=== PATIENT | female | born 1995 | race Caucasian/White ===

== ENCOUNTER 2017-03-27 23:25 | Emergency (ER) | payer OTHER ==
[~2017-03-27 23:25] MED LIST: ALBU90OI INH; AZIT250 PO; Crutch1 EACH MISC; HYDHCL25 PO; IBUP600 PO; PRED10 PO; Prednisone20 MG PO; Verotin-Gr Cap1 EACH PO; Zofran Odt4 MG SL
== END 2017-03-28 | disposition left against medical advice (07) ==
LOC: ER 23:25
DX: Z53.21 Procedure and treatment not carried out due to patient leaving prior to being seen by health care provider (principal)

== ENCOUNTER 2017-04-23 18:53 | Emergency (ER) | payer OTHER ==
[~2017-04-23] VITALS: Ht 152.4 cm; Wt 72.6 kg
[2017-04-23 19:19] LABS: Source, Urine Clean Catch
[2017-04-23 19:22] LABS: Bilirubin, Urine Neg (Neg); Blood, Urine Neg (Neg); Glucose Qualitative, Urine Neg (Neg); Ketones, Urine Neg (Neg); Leukocyte Esterase, Urine 3+ (Neg); Nitrite, Urine Neg (Neg); Protein, Urine 1+ (Neg); Specific Gravity, Urine 1.015 (1.003-1.022); Urobilinogen, Urine 1+ (Normal)
[2017-04-23 19:32] LABS: Appearance, Urine Hazy (Clear); Color, Urine Yellow (P-Yellow)
[2017-04-23 19:33] LABS: Bacteria Mod /hpf; Red Blood Cells, Urine 0-2 /hpf (0-2); Squamous Epithelial Cells Mod /hpf (Few); White Blood Cells, Urine 25-50 /hpf (0-5)
[2017-04-23 19:35] LABS: BASOPHILS ABSOLUTE AUTO 0.05 K/mm3 (0.00-0.23); BASOPHILS PERCENT AUTO 1 % (0-2); EOSINOPHILS PERCENT AUTO 2 % (0-6); Hematocrit 38.6 % (33.0-51.0); Hemoglobin 12.6 g/dL (11.5-16.0); IMMATURE GRAN ABSOLUTE AUTO 0.02 K/mm3 (0.00-0.10); IMMATURE GRAN PERCENT AUTO 0 % (0-1); LYMPHOCYTES ABSOLUTE AUTO 1.65 K/mm3 (0.84-5.20); LYMPHOCYTES PERCENT AUTO 24 % (21-46); MONOCYTES ABSOLUTE AUTO 0.58 K/mm3 (0.16-1.47); MONOCYTES PERCENT AUTO 9 % (4-13); Mean Corpuscular HGB Conc 32.6 g/dL (31.5-36.5); Mean Corpuscular Volume 89 fL (80-100); NEUTROPHILS ABSOLUTE AUTO 4.43 K/mm3 (1.96-9.15); NEUTROPHILS PERCENT AUTO 65 % (41-73); Platelet Count 142 K/mm3 (150-400); RDW Coefficient Variation 13.1 % (11.7-14.2); RDW Standard Deviation 42.9 fL (35.1-46.3); Red Blood Cell Count 4.34 M/mm3 (3.80-5.20); White Blood Cell Count 6.83 K/mm3 (4.00-11.30)
[2017-04-23 19:40] LABS: Mean Platelet Volume 14.2 fL (9.1-12.4)
[2017-04-23 19:53] LABS: Alanine Aminotransfer (ALT/SGP 15 U/L (12-78); Albumin, Blood 3.6 g/dL (3.4-5.0); Albumin/Globulin Ratio 0.9 (0.8-1.8); Alk Phos 96 U/L (50-136); Anion Gap 9 mmol/L (6-16); Aspartate Aminotrans (AST/SGOT 18 U/L (12-37); Bilirubin, Total 0.5 mg/dL (0.1-1.0); Blood Urea Nitrogen 7 mg/dL (8-24); Bun/Creatinine Ratio 12.8 (12.0-20.0); CO2, Blood 25 mmol/L (21-32); Calcium, Blood 8.2 mg/dL (8.5-10.1); Chloride, Blood 105 mmol/L (98-108); Creatinine, Blood 0.55 mg/dL (0.40-1.00); Globulin, Blood 3.8 g/dL (2.2-4.0); Glomerular Filtration Rate >60 (60-); Glucose, Blood 81 mg/dL (70-99); Potassium, Blood 3.7 mmol/L (3.5-5.5); Sodium, Blood 139 mmol/L (136-145); Total Protein, Blood 7.4 g/dL (6.4-8.2)
== END 2017-04-23 20:19 | disposition home or self-care (01) ==
LOC: ER 18:53
PROVIDERS: Emergency Medicine
DX: R10.31 Right lower quadrant pain (principal); R10.32 Left lower quadrant pain; Z91.030 Bee allergy status; Z91.02 Food additives allergy status; J45.909 Unspecified asthma, uncomplicated; F17.210 Nicotine dependence, cigarettes, uncomplicated
CPT/HCPCS: 36415; 80053; 81001; 81025; 83690; 85025; 87086; 99283

== ENCOUNTER 2017-05-10 15:59 | Emergency (ER) | payer OTHER ==
[~2017-05-10] VITALS: Ht 152.4 cm; Wt 72.6 kg
[2017-05-11] MEDS ORDERED: OXYC10TA19 PO (12:02)
[2017-05-11] MEDS ORDERED: Bactrim Ds Tab1 EACH PO (12:02)
== END 2017-05-10 16:46 | disposition left against medical advice (07) ==
LOC: ER 15:59
DX: Z53.21 Procedure and treatment not carried out due to patient leaving prior to being seen by health care provider (principal)

== ENCOUNTER 2017-05-10 20:44 | Emergency (ER) | payer OTHER ==
[~2017-05-10] VITALS: Ht 152.4 cm; Wt 72.6 kg
[2017-05-10 21:05] LABS: Hemoglobin 11.2 g/dL (11.5-16.0); Mean Corpuscular HGB Conc 32.9 g/dL (31.5-36.5); Mean Corpuscular Volume 88 fL (80-100); Platelet Count 139 K/mm3 (150-400); RDW Coefficient Variation 13.8 % (11.7-14.2); RDW Standard Deviation 44.6 fL (35.1-46.3); Red Blood Cell Count 3.86 M/mm3 (3.80-5.20); White Blood Cell Count 17.22 K/mm3 (4.00-11.30)
[2017-05-10 21:08] LABS: Mean Platelet Volume 13.7 fL (9.1-12.4)
[2017-05-10 21:19] LABS: Alanine Aminotransfer (ALT/SGP 19 U/L (12-78); Albumin, Blood 3.6 g/dL (3.4-5.0); Albumin/Globulin Ratio 0.9 (0.8-1.8); Alk Phos 92 U/L (50-136); Anion Gap 10 mmol/L (6-16); Aspartate Aminotrans (AST/SGOT 14 U/L (12-37); Blood Urea Nitrogen 6 mg/dL (8-24); Bun/Creatinine Ratio 11.7 (12.0-20.0); CO2, Blood 21 mmol/L (21-32); Calcium, Blood 8.4 mg/dL (8.5-10.1); Chloride, Blood 103 mmol/L (98-108); Creatinine, Blood 0.51 mg/dL (0.40-1.00); Glomerular Filtration Rate >60 (60-); Glucose, Blood 105 mg/dL (70-99); Potassium, Blood 3.8 mmol/L (3.5-5.5); Sodium, Blood 134 mmol/L (136-145); Total Protein, Blood 7.6 g/dL (6.4-8.2)
[2017-05-10 21:38] LABS: BAND PERCENT MAN 15 % (0-8); BASOPHILS PERCENT MAN 0 % (0-2); EOSINOPHILS PERCENT MAN 0 % (0-6); LYMPHOCYTES ABSOLUTE MAN 1.03 K/mm3 (0.84-5.20); LYMPHOCYTES PERCENT MAN 6 % (21-46); MONOCYTES ABSOLUTE MAN 0.51 K/mm3 (0.16-1.47); MONOCYTES PERCENT MAN 3 % (4-13); NEUTROPHILS ABSOLUTE MAN 15.67 K/mm3 (1.96-9.15); SEG NEUTROPHILS PERCENT MAN 76 % (41-73); TOTAL CELLS COUNTED 100
[2017-05-11] MEDS ORDERED: Bactrim Ds Tab1 EACH PO (12:02)
[2017-05-11] MEDS ORDERED: OXYC10TA19 PO (12:02)
== END 2017-05-10 21:14 | disposition left against medical advice (07) ==
LOC: ER 20:44
PROVIDERS: Emergency Medicine
DX: R10.30 Lower abdominal pain, unspecified (principal); Z91.030 Bee allergy status; Z91.02 Food additives allergy status; J45.909 Unspecified asthma, uncomplicated; F17.210 Nicotine dependence, cigarettes, uncomplicated
CPT/HCPCS: 80053; 83690; 85025; 99283

== ENCOUNTER 2017-05-10 22:31 | Inpatient (IN) | payer OTHER ==
[~2017-05-10] VITALS: Ht 152.4 cm; Wt 73.9 kg
[2017-05-11 00:12] LABS: Source, Urine Clean Catch
[2017-05-11 00:14] LABS: Blood, Urine 5+ (Neg); Glucose Qualitative, Urine Neg (Neg); Ketones, Urine 4+ (Neg); Leukocyte Esterase, Urine 3+ (Neg); Nitrite, Urine Neg (Neg); Protein, Urine 2+ (Neg); Urobilinogen, Urine 1+ (Normal)
[2017-05-11 00:19] LABS: Appearance, Urine Hazy (Clear); Bilirubin, Urine 1+ (Neg); Color, Urine Amber (P-Yellow)
[2017-05-11 00:21] LABS: Bacteria Many /hpf; Mucus Light (0-Heavy); Red Blood Cells, Urine 0-2 /hpf (0-2); Squamous Epithelial Cells Rare /hpf (Few); White Blood Cells, Urine 50-100 /hpf (0-5)
[2017-05-11] MEDS ORDERED: Bactrim Ds Tab1 EACH PO (12:02)
[2017-05-11] MEDS ORDERED: OXYC10TA19 PO (12:02)
== END 2017-05-11 13:15 | disposition home or self-care (01) | DRG 690 ==
LOC: ER 22:31 → SURS 05-11 03:06
PROVIDERS: Emergency Medicine
DX: N39.0 Urinary tract infection, site not specified (principal); F17.210 Nicotine dependence, cigarettes, uncomplicated; Z91.038 Other insect allergy status; Z91.018 Allergy to other foods
CPT/HCPCS: 36415; 74177; 81001; 81025; 87086; 96365; 96375; 96376; 99285; J0295; J0696; J1170; J2405; J7030; Q9967

== ENCOUNTER 2018-03-30 16:58 | Emergency (ER) | payer OTHER ==
[~2018-03-30] VITALS: Ht 154.9 cm; Wt 66.7 kg
[~2018-03-30 16:58] MED LIST changes: +Bactrim Ds Tab1 EACH PO; +OXYC10TA19 PO
[2018-03-30 17:32] LABS: BASOPHILS ABSOLUTE AUTO 0.06 K/mm3 (0.00-0.23); BASOPHILS PERCENT AUTO 1 % (0-2); EOSINOPHILS ABSOLUTE AUTO 0.07 K/mm3 (0.00-0.68); EOSINOPHILS PERCENT AUTO 1 % (0-6); Hematocrit 37.7 % (33.0-51.0); Hemoglobin 12.4 g/dL (11.5-16.0); IMMATURE GRAN ABSOLUTE AUTO 0.03 K/mm3 (0.00-0.10); IMMATURE GRAN PERCENT AUTO 0 % (0-1); LYMPHOCYTES ABSOLUTE AUTO 1.99 K/mm3 (0.84-5.20); LYMPHOCYTES PERCENT AUTO 21 % (21-46); MONOCYTES PERCENT AUTO 7 % (4-13); Mean Corpuscular HGB Conc 32.9 g/dL (31.5-36.5); Mean Corpuscular Volume 91 fL (80-100); NEUTROPHILS ABSOLUTE AUTO 6.53 K/mm3 (1.96-9.15); NEUTROPHILS PERCENT AUTO 70 % (41-73); Platelet Count 133 K/mm3 (150-400); RDW Coefficient Variation 13.7 % (11.7-14.2); RDW Standard Deviation 46.1 fL (35.1-46.3); Red Blood Cell Count 4.13 M/mm3 (3.80-5.20); White Blood Cell Count 9.28 K/mm3 (4.00-11.30)
[2018-03-30 17:36] LABS: Mean Platelet Volume 13.6 fL (9.1-12.4)
[2018-03-30 17:52] LABS: Alanine Aminotransfer (ALT/SGP 21 U/L (12-78); Albumin, Blood 3.6 g/dL (3.4-5.0); Alk Phos 68 U/L (50-136); Anion Gap 9 mmol/L (6-16); Aspartate Aminotrans (AST/SGOT 19 U/L (12-37); Bilirubin, Total 0.3 mg/dL (0.1-1.0); Blood Urea Nitrogen 11 mg/dL (8-24); Bun/Creatinine Ratio 23.3 (12.0-20.0); CO2, Blood 20 mmol/L (21-32); Calcium, Blood 7.9 mg/dL (8.5-10.1); Chloride, Blood 107 mmol/L (98-108); Creatinine, Blood 0.47 mg/dL (0.40-1.00); Globulin, Blood 3.6 g/dL (2.2-4.0); Glomerular Filtration Rate >60 (60-); Glucose, Blood 74 mg/dL (70-99); Potassium, Blood 3.8 mmol/L (3.5-5.5); Sodium, Blood 136 mmol/L (136-145); Total Protein, Blood 7.2 g/dL (6.4-8.2)
[2018-03-30 18:06] LABS: Beta HCG, Quantitative, Serum 130296 mIU/mL (0-3)
== END 2018-03-30 18:27 | disposition left against medical advice (07) ==
LOC: ER 16:58
PROVIDERS: Physician Assistant
DX: Z53.21 Procedure and treatment not carried out due to patient leaving prior to being seen by health care provider (principal)
CPT/HCPCS: 36415; 80053; 84702; 85025; 93005; 93010; 99283-25

== ENCOUNTER 2018-05-30 11:34 | Emergency (ER) | payer OTHER ==
[~2018-05-30] VITALS: Ht 152.4 cm; Wt 66.2 kg
[2018-05-30 12:14] LABS: BASOPHILS ABSOLUTE AUTO 0.04 K/mm3 (0.00-0.23); BASOPHILS PERCENT AUTO 0 % (0-2); EOSINOPHILS ABSOLUTE AUTO 0.04 K/mm3 (0.00-0.68); EOSINOPHILS PERCENT AUTO 0 % (0-6); Hematocrit 37.2 % (33.0-51.0); Hemoglobin 12.4 g/dL (11.5-16.0); IMMATURE GRAN ABSOLUTE AUTO 0.11 K/mm3 (0.00-0.10); IMMATURE GRAN PERCENT AUTO 1 % (0-1); LYMPHOCYTES ABSOLUTE AUTO 0.73 K/mm3 (0.84-5.20); LYMPHOCYTES PERCENT AUTO 5 % (21-46); MONOCYTES ABSOLUTE AUTO 0.59 K/mm3 (0.16-1.47); MONOCYTES PERCENT AUTO 4 % (4-13); Mean Corpuscular HGB 31.4 pg (26.0-34.0); Mean Corpuscular HGB Conc 33.3 g/dL (31.5-36.5); Mean Corpuscular Volume 94 fL (80-100); NEUTROPHILS ABSOLUTE AUTO 13.71 K/mm3 (1.96-9.15); NEUTROPHILS PERCENT AUTO 90 % (41-73); Platelet Count 139 K/mm3 (150-400); RDW Coefficient Variation 13.1 % (11.7-14.2); RDW Standard Deviation 45.5 fL (35.1-46.3); Red Blood Cell Count 3.95 M/mm3 (3.80-5.20); White Blood Cell Count 15.22 K/mm3 (4.00-11.30)
[2018-05-30 12:22] LABS: Mean Platelet Volume 13.1 fL (9.1-12.4)
[2018-05-30 12:40] LABS: Alanine Aminotransfer (ALT/SGP 16 U/L (12-78); Albumin/Globulin Ratio 0.7 (0.8-1.8); Alk Phos 65 U/L (50-136); Anion Gap 5 mmol/L (6-16); Aspartate Aminotrans (AST/SGOT 10 U/L (12-37); Bilirubin, Total 0.3 mg/dL (0.1-1.0); Blood Urea Nitrogen 7 mg/dL (8-24); Bun/Creatinine Ratio 18.6 (12.0-20.0); CO2, Blood 24 mmol/L (21-32); Calcium, Blood 8.2 mg/dL (8.5-10.1); Chloride, Blood 108 mmol/L (98-108); Creatinine, Blood 0.38 mg/dL (0.40-1.00); Globulin, Blood 4.2 g/dL (2.2-4.0); Glomerular Filtration Rate >60 (60-); Glucose, Blood 86 mg/dL (70-99); Potassium, Blood 3.7 mmol/L (3.5-5.5); Sodium, Blood 137 mmol/L (136-145); Total Protein, Blood 7.2 g/dL (6.4-8.2)
[2018-05-30 13:23] LABS: Beta HCG, Quantitative, Serum 39529 mIU/mL (0-3)
[2018-05-30] MEDS ORDERED: HYDR1TAB94 PO (16:09)
[2018-05-30] MEDS ORDERED: PROM25 PO (16:09)
== END 2018-05-30 16:38 | disposition home or self-care (01) ==
LOC: ER 11:34
PROVIDERS: Physician Assistant
DX: O21.9 Vomiting of pregnancy, unspecified (principal); O99.89 Other specified diseases and conditions complicating pregnancy, childbirth and the puerperium; R10.9 Unspecified abdominal pain; O99.512 Diseases of the respiratory system complicating pregnancy, second trimester; J45.909 Unspecified asthma, uncomplicated; O99.332 Smoking (tobacco) complicating pregnancy, second trimester; F17.210 Nicotine dependence, cigarettes, uncomplicated; Z3A.17 17 weeks gestation of pregnancy; Z91.030 Bee allergy status; Z91.09 Other allergy status, other than to drugs and biological substances; Z91.018 Allergy to other foods; Z91.038 Other insect allergy status
CPT/HCPCS: 36415; 76816; 80053; 84702; 85025; 86900; 86901; 96361; 96374; 96375; 96376; 99284-25; J1170; J2405; J2550; J7120

== ENCOUNTER 2018-11-05 00:11 | Inpatient (IN) | payer OTHER ==
[~2018-11-05] VITALS: Ht 152.4 cm; Wt 81.5 kg
[~2018-11-05 00:11] MED LIST changes: +HYDR1TAB94 PO; +PROM25 PO
[2018-11-05 02:37] LABS: BASOPHILS ABSOLUTE AUTO 0.02 K/mm3 (0.00-0.23); BASOPHILS PERCENT AUTO 0 % (0-2); EOSINOPHILS ABSOLUTE AUTO 0.02 K/mm3 (0.00-0.68); EOSINOPHILS PERCENT AUTO 0 % (0-6); Hematocrit 30.1 % (33.0-51.0); Hemoglobin 9.6 g/dL (11.5-16.0); IMMATURE GRAN ABSOLUTE AUTO 0.06 K/mm3 (0.00-0.10); IMMATURE GRAN PERCENT AUTO 1 % (0-1); LYMPHOCYTES ABSOLUTE AUTO 1.21 K/mm3 (0.84-5.20); LYMPHOCYTES PERCENT AUTO 15 % (21-46); MONOCYTES ABSOLUTE AUTO 0.63 K/mm3 (0.16-1.47); MONOCYTES PERCENT AUTO 8 % (4-13); Mean Corpuscular HGB 26.7 pg (26.0-34.0); Mean Corpuscular HGB Conc 31.9 g/dL (31.5-36.5); Mean Corpuscular Volume 84 fL (80-100); NEUTROPHILS PERCENT AUTO 75 % (41-73); Platelet Count 159 K/mm3 (150-400); RDW Coefficient Variation 14.6 % (11.7-14.2); Red Blood Cell Count 3.59 M/mm3 (3.80-5.20); White Blood Cell Count 7.84 K/mm3 (4.00-11.30)
[2018-11-05 02:38] LABS: Mean Platelet Volume 14.1 fL (9.1-12.4)
[2018-11-05 09:18] LABS: U Amphetamine Screen DETECTED; U Barbituate Screen Not Detected; U Benzodiazapine Screen Not Detected; U Buprenorphine Screen Not Detected; U Cannabinoids Screen DETECTED; U Cocaine Screen Not Detected; U Methadone Screen Not Detected; U Methamphetamine Screen DETECTED; U Opiates Screen Not Detected; U Oxycodone Screen Not Detected; U Phencyclidine Screen Not Detected; U Propoxyphene Screen Not Detected
--- NOTE | 2018-11-05 13:58 | NUR ---
Pt sleeping soundly.
--- NOTE | 2018-11-05 17:25 | NUR ---
Child welfare Rosanna May from hotline notified RN that case will be assigned. She also stated she informed leather case finisher that Pt and nb could be d/c'd in early AM. [facility] staff to notify hotline if pt ready to d/c and leather case finisher has not been to unit. Rosanna May also updated about NB positive urine drug screen.
--- NOTE | 2018-11-05 19:29 | NUR ---
Report to Agustín Rubio RN. Pt has been attentive and pleasant this afternoon. she is very attentive with NB. FOB has been appropriate with staff but RN has not seen him interact with nb much.
--- NOTE | 2018-11-05 21:25 | NUR ---
PT COMPLAINING OF PAIN IN THE LOWER STERNUM AFTER RETURNING FROM SMOKING. RN OBTAINED A FULL SET OF VITAL SIGNS WITH O2 SATURATION 96%. PT REQUESTING PAIN MEDICATION, RN MEDICATED WITH 1 PERCOCET FOR 7/10 PAIN. RN WILL CONTINUE TO MONITOR.
[2018-11-06 05:17] LABS: Hematocrit 26.3 % (33.0-51.0); Hemoglobin 8.5 g/dL (11.5-16.0); Mean Corpuscular HGB 27.3 pg (26.0-34.0); Mean Corpuscular HGB Conc 32.3 g/dL (31.5-36.5); Mean Corpuscular Volume 85 fL (80-100); Platelet Count 123 K/mm3 (150-400); RDW Coefficient Variation 14.7 % (11.7-14.2); RDW Standard Deviation 45.1 fL (35.1-46.3); Red Blood Cell Count 3.11 M/mm3 (3.80-5.20); White Blood Cell Count 9.23 K/mm3 (4.00-11.30)
[2018-11-06 05:38] LABS: Mean Platelet Volume 14.1 fL (9.1-12.4)
--- NOTE | 2018-11-06 08:21 | NUR ---
RN SPOKE WITH ROMEO FROM [facility]. INSTRUCTED TO HOLD BABY AND THAT ROMEO WOULD BE HERE BEFORE NOON TO TAKE PROTECTED CUSTODY OF BABY. REQUESTED THAT WE HAVE SECURITY PRESENT, SECURITY NOTIFIED.
--- NOTE | 2018-11-06 09:42 | NUR ---
PATIENT ALREADY HAS PATIENT PORTAL.
--- NOTE | 2018-11-06 10:30 | NUR ---
CPS HAND COUNTER ROMEO PRESENT AT BEDSIDE. WHEN SPEAKING WITH PATIENT AND FATHER OF BABY PATIENT FALLING ASLEEP DURING CONVERSATION. IRRITABLE AND AGGRESSIVE WHEN ANSWERING CASE WORKERS QUESTIONS. RN AND ROMEO TO NURSERY TO SEE BABY. UPON RETURNING TO PATIENT ROOM APPROXIMATELY FIVE MINUTES LATER BOTH PATIENT AND FOB ASLEEP. ROMEO NOTIFIED PARENTS THAT THEY WERE TAKING BABY INTO PROTECTIVE CUSTODY. PATIENT STATED FOR HER TO GET OUT OF HER ROOM.
--- NOTE | 2018-11-06 10:55 | NUR ---
PATIENT STORMED OUT OF ROOM WITH BELINGINGS IN HAND. RN ASKED IF PATIENT NEEDED ANYTHING BEFORE SHE GOES, PATIENT DID NOT RESPOND AND KEPT WALKING. BABY DIAPER BAG LEFT IN ROOM, RN ASKED PATIENT IF SHE WANTED TO TAKE DIAPER BAG, NO RESPONSE BY PATIENT SHE CONTINUED TO WALK. FATHER OF THE BABY AND PERSON GIVING THEM A RIDE AT HER SIDE.
== END 2018-11-06 10:55 | disposition home or self-care (01) | DRG 806 ==
LOC: BC 00:11 → OBS 00:11 → BC 02:00
PROVIDERS: ADMIT Advanced Practice Midwife
PROC: 10E0XZZ Delivery of Products of Conception, External Approach (ICD-10-PCS; principal; 2018-11-05)
PROC: 0HQ9XZZ Repair Perineum Skin, External Approach (ICD-10-PCS; 2018-11-05)
PROC: 3E0R3BZ Introduction of Anesthetic Agent into Spinal Canal, Percutaneous Approach (ICD-10-PCS; 2018-11-05)
DX: O48.0 Post-term pregnancy (principal); O99.324 Drug use complicating childbirth; Z37.0 Single live birth; Z3A.40 40 weeks gestation of pregnancy; O99.02 Anemia complicating childbirth; D64.9 Anemia, unspecified; O70.0 First degree perineal laceration during delivery; F19.10 Other psychoactive substance abuse, uncomplicated; O99.334 Smoking (tobacco) complicating childbirth; F17.200 Nicotine dependence, unspecified, uncomplicated
CPT/HCPCS: 36415; 51702; 85025; 85027; G0480; J0290; J2001; J2590; J3010; J7120

== ENCOUNTER 2019-07-22 14:40 | Emergency (ER) | payer OTHER ==
[~2019-07-22] VITALS: Ht 152.4 cm; Wt 54.4 kg
[~2019-07-22 14:40] MED LIST changes: +CEPH500 PO
== END 2019-07-22 16:00 | disposition left against medical advice (07) ==
LOC: ER 14:40
DX: Z53.21 Procedure and treatment not carried out due to patient leaving prior to being seen by health care provider (principal)
CPT/HCPCS: 99281

== ENCOUNTER 2019-07-23 20:52 | Emergency (ER) | payer OTHER ==
[~2019-07-23] VITALS: Ht 149.9 cm; Wt 57.1 kg
[2019-07-23 21:58] LABS: BASOPHILS ABSOLUTE AUTO 0.02 K/mm3 (0.00-0.23); BASOPHILS PERCENT AUTO 0 % (0-2); EOSINOPHILS ABSOLUTE AUTO 0.03 K/mm3 (0.00-0.68); EOSINOPHILS PERCENT AUTO 0 % (0-6); Hematocrit 26.1 % (33.0-51.0); Hemoglobin 8.5 g/dL (11.5-16.0); IMMATURE GRAN ABSOLUTE AUTO 0.06 K/mm3 (0.00-0.10); IMMATURE GRAN PERCENT AUTO 1 % (0-1); LYMPHOCYTES ABSOLUTE AUTO 1.08 K/mm3 (0.84-5.20); LYMPHOCYTES PERCENT AUTO 9 % (21-46); MONOCYTES ABSOLUTE AUTO 0.87 K/mm3 (0.16-1.47); MONOCYTES PERCENT AUTO 7 % (4-13); Mean Corpuscular HGB 29.1 pg (26.0-34.0); Mean Corpuscular HGB Conc 32.6 g/dL (31.5-36.5); Mean Corpuscular Volume 89 fL (80-100); NEUTROPHILS ABSOLUTE AUTO 10.22 K/mm3 (1.96-9.15); NEUTROPHILS PERCENT AUTO 83 % (41-73); Platelet Count 160 K/mm3 (150-400); RDW Coefficient Variation 13.6 % (11.7-14.2); RDW Standard Deviation 44.4 fL (35.1-46.3); Red Blood Cell Count 2.92 M/mm3 (3.80-5.20); White Blood Cell Count 12.28 K/mm3 (4.00-11.30)
[2019-07-23 21:59] LABS: Mean Platelet Volume 13.5 fL (9.1-12.4)
[2019-07-23 22:13] LABS: Alanine Aminotransfer (ALT/SGP 16 U/L (12-78); Albumin, Blood 2.6 g/dL (3.4-5.0); Albumin/Globulin Ratio 0.7 (0.8-1.8); Alk Phos 76 U/L (50-136); Anion Gap 8 mmol/L (6-16); Aspartate Aminotrans (AST/SGOT 14 U/L (12-37); Bilirubin, Total 0.3 mg/dL (0.1-1.0); Blood Urea Nitrogen 8 mg/dL (8-24); Bun/Creatinine Ratio 16.8 (12.0-20.0); CO2, Blood 22 mmol/L (21-32); Calcium, Blood 7.8 mg/dL (8.5-10.1); Chloride, Blood 108 mmol/L (98-108); Creatinine, Blood 0.48 mg/dL (0.40-1.00); Globulin, Blood 3.9 g/dL (2.2-4.0); Glomerular Filtration Rate >60 (60-); Glucose, Blood 101 mg/dL (70-99); Potassium, Blood 3.2 mmol/L (3.5-5.5); Sodium, Blood 138 mmol/L (136-145); Total Protein, Blood 6.5 g/dL (6.4-8.2)
[2019-07-23 22:24] LABS: Beta HCG, Quantitative, Serum 106689 mIU/mL (0-3)
== END 2019-07-24 00:06 | disposition home or self-care (01) ==
LOC: ER 20:52
PROVIDERS: Emergency Medicine
DX: N93.9 Abnormal uterine and vaginal bleeding, unspecified (principal); E87.6 Hypokalemia; F17.210 Nicotine dependence, cigarettes, uncomplicated; Z91.030 Bee allergy status; Z91.018 Allergy to other foods; Z91.048 Other nonmedicinal substance allergy status
CPT/HCPCS: 36415; 76856; 80053; 84702; 85025; 86900; 86901; 99284-25; A9270

== ENCOUNTER 2019-08-11 17:49 | Emergency (ER) | payer OTHER ==
[~2019-08-11] VITALS: Ht 149.9 cm; Wt 56.7 kg
== END 2019-08-11 19:35 | disposition home or self-care (01) ==
LOC: ER 17:49
DX: R07.9 Chest pain, unspecified (principal); F15.10 Other stimulant abuse, uncomplicated; Z91.018 Allergy to other foods; Z91.048 Other nonmedicinal substance allergy status; Z91.030 Bee allergy status
CPT/HCPCS: 71046; 84484; 93005; 93010; 99285-25

== ENCOUNTER 2020-02-23 23:42 | Emergency (ER) | payer OTHER ==
[~2020-02-23] VITALS: Ht 152.4 cm; Wt 54.4 kg
== END 2020-02-24 02:15 | disposition home or self-care (01) ==
LOC: ER 23:42
DX: R07.9 Chest pain, unspecified (principal); R06.02 Shortness of breath; I25.2 Old myocardial infarction; F17.210 Nicotine dependence, cigarettes, uncomplicated; Z91.030 Bee allergy status; Z91.018 Allergy to other foods; Z91.09 Other allergy status, other than to drugs and biological substances
CPT/HCPCS: 84484; 93005; 93010; 99284-25

== ENCOUNTER 2020-03-26 03:08 | Emergency (ER) | payer OTHER ==
[~2020-03-26] VITALS: Ht 165.1 cm; Wt 54.4 kg
[2020-03-26] MEDS ORDERED: PRENATAL TABLE1 EAC2 PO (03:22)
[2020-03-26] MEDS ORDERED: FERSU300 PO (03:23)
== END 2020-03-26 03:50 | disposition left against medical advice (07) ==
LOC: ER 03:08
DX: R07.9 Chest pain, unspecified (principal); Z53.21 Procedure and treatment not carried out due to patient leaving prior to being seen by health care provider
CPT/HCPCS: 93005; 93010

== ENCOUNTER 2020-04-19 23:22 | Emergency (ER) | payer OTHER ==
[~2020-04-19] VITALS: Ht 152.4 cm; Wt 54.4 kg
[~2020-04-19 23:22] MED LIST changes: +FERSU300 PO; +PRENATAL TABLE1 EAC2 PO
== END 2020-04-20 00:10 | disposition home or self-care (01) ==
LOC: ER 23:22
DX: Z02.89 Encounter for other administrative examinations (principal); F11.10 Opioid abuse, uncomplicated; R07.9 Chest pain, unspecified; R06.00 Dyspnea, unspecified; F17.210 Nicotine dependence, cigarettes, uncomplicated; I25.2 Old myocardial infarction; Z91.030 Bee allergy status; Z91.09 Other allergy status, other than to drugs and biological substances; Z91.02 Food additives allergy status; Z79.899 Other long term (current) drug therapy
CPT/HCPCS: 93005; 93010; 99285-25; A9270